=== PATIENT | male | born 1990 | race African-American/Black ===

== ENCOUNTER 2024-04-14 00:54 | Emergency (ER) | payer SELFPAY ==
[~2024-04-14] VITALS: Ht 182.9 cm; Wt 87.0 kg
[2024-04-14 01:04] VITALS: O2SAT 97
[2024-04-14 01:59] VITALS: BP 120/71; PULSE 80; RESP 23; TEMP 37.00296; O2SAT 100
== END 2024-04-14 04:20 | disposition home or self-care (01) ==
LOC: ER 00:54
DX: S00.03XA Contusion of scalp, initial encounter (principal); W01.0XXA Fall on same level from slipping, tripping and stumbling without subsequent striking against object, initial encounter; Y93.89 Activity, other specified; Y92.89 Other specified places as the place of occurrence of the external cause; Y99.8 Other external cause status
CPT/HCPCS: 99284